=== PATIENT | female | born 1980 ===

== ENCOUNTER 2021-11-23 05:50 | Day surgery (SDC) | payer OTHER ==
[~2021-11-23] VITALS: Ht 157.5 cm; Wt 78.0 kg
[2021-11-23] MEDS ORDERED: CILOXAN5 ML OTIC (10:31)
[2021-11-23] MEDS ORDERED: ZOFRAN8 MG PO (10:32)
[2021-11-23] MEDS ORDERED: CEPHALEXIN500 M1 PO (10:32)
== END 2021-11-23 13:45 | disposition home or self-care (01) ==
LOC: CIR.AMB 05:50
PROVIDERS: ATTEND Otolaryngology Otology & Neurotology
DX: H70.11 Chronic mastoiditis, right ear (principal); H72.01 Central perforation of tympanic membrane, right ear; H74.21 Discontinuity and dislocation of right ear ossicles; Z20.822 Contact with and (suspected) exposure to COVID-19; Z86.16 Personal history of COVID-19